=== PATIENT | female | born 1965 ===

== ENCOUNTER 2018-05-09 18:49 | Emergency (ER) | payer OTHER ==
[2018-05-09 18:49] VITALS: BMI 27.4
[2018-05-09 19:47] VITALS: TEMP 99.2
--- NOTE | 2018-05-09 20:13 | ED PDOC ---
Upper Extremity Pain/Injury Time Seen by Provider: 05/09/18 20:06 Chief Complaint (Nursing): Upper Extremity Problem/Injury Chief Complaint (Provider): Upper Extremity Problem/Injury History Per: Patient History/Exam Limitations: no limitations Onset/Duration Of Symptoms: Days (x14) Current Symptoms Are (Timing): Still Present Additional Complaint(s): 52 y/o female with a PMHx of diabetes presents to the ED having left sided chest pain noted by her left axilla, onset two weeks. Patient reports pain has been continuous and worsens with movement of the left arm. Patient additionally reports of numbness to the left arm and pain in the back that improves with0 naprosyn. In addition, patient reports of having a mammogram performed a few weeks ago that resulted within normal limits. Denies cough. PMD: Shaik Ramírez Past Medical History Reviewed: Historical Data, Nursing Documentation, Vital Signs Vital Signs: Last Vital Signs Temp 99.2 F 05/09/18 19:42 Pulse 84 05/09/18 19:42 Resp 18 05/09/18 19:42 BP 147/86 05/09/18 19:42 Pulse Ox 100 05/09/18 19:42 - Medical History PMH: Arthritis, Colonic Polyps, Diabetes, Gastritis, Hypercholesterolemia (NO MED), Hyperlipidemia, Hypothyroidism, Kidney Stones (right, 1994) Denies: Chronic Kidney Disease - Surgical History Surgical History: Cholecystectomy, Endoscopy - Family History Family History: States: Unknown Family Hx - Immunization History Hx Tetanus Toxoid Vaccination: No Hx Influenza Vaccination: No Hx Pneumococcal Vaccination: No - Home Medications Home Medications: Ambulatory Orders Medication Instructions Recorded Levothyroxine Sodium [Unithroid] 112 mcg PO DAILY 03/16/16 Metformin HCl 1,000 mg PO BID 03/16/16 Omeprazole 40 mg PO DAILY 05/20/16 SITagliptin [Januvia] 100 mg PO DAILY 04/04/17 Naproxen 375 mg PO Q8 PRN #21 tablet 05/09/18 - Allergies Allergies/Adverse Reactions: Allergies Allergy/AdvReac Type Severity Reaction Status Date / Time No Known Allergies Allergy Verified 05/11/17 07:52 Review of Systems ROS Statement: Except As Marked, All Systems Reviewed And Found Negative Cardiovascular: Positive for: Chest Pain (left sided) Physical Exam - Reviewed Nursing Documentation Reviewed: Yes Vital Signs Reviewed: Yes - Physical Exam Appears: Positive for: No Acute Distress Head Exam: Positive for: ATRAUMATIC Skin: Positive for: Normal Color, Warm Eye Exam: Positive for: Normal appearance Neck: Positive for: Normal, Painless ROM Cardiovascular/Chest: Positive for: Other (Breasts: Tenderness by insertion pectoralis muscle. No mass noted. No lymphadenopathy. No sign of infection. ). Negative for: Bradycardia, Tachycardia Respiratory: Negative for: Accessory Muscle Use, Respiratory Distress Neurologic/Psych: Positive for: Alert, Oriented (x3). Negative for: Motor/ Sensory Deficits - ECG ECG Rhythm: Positive for: Sinus Rhythm (nsr 76bpm; no ectopy no acute changes) O2 Sat by Pulse Oximetry: 100 (RA) - Progress ED Course And Treament: cxr: nad Medical Decision Making Medical Decision Making: Time: 2005 Plan: -- EKG -- CXR (PA&LAT) -- EKG Documentation Scribe Attestation: Documented by Liat Hendrix, acting as a scribe for Jacob Sanders PA-C. Provider Scribe Attestation: All medical record entries made by the Scribe were at my direction and personally dictated by me. I have reviewed the chart and agree that the record accurately reflects my personal performance of the history, physical exam, medical decision making, and the department course for this patient. I have also personally directed, reviewed, and agree with the discharge instructions and disposition. Disposition - Clinical Impression Clinical Impression: Chest wall tenderness - Patient ED Disposition Is Patient to be Admitted: No - Disposition Referrals: [facility] [Outside] Disposition: Routine/Home Disposition Time: 21:29 Condition: STABLE Prescriptions: Naproxen 375 mg PO Q8 PRN #21 tablet PRN Reason: Pain, Moderate (4-7) Instructions: Chest Pain Print Language: [place]
[2018-05-09 21:59] VITALS: BP 139/79; PULSE 72; RESP 15
--- NOTE | 2018-05-10 08:54 | RAD ---
HISTORY: COMPARISON: No prior. TECHNIQUE: Chest PA and lateral FINDINGS: LINES AND TUBES: None. LUNG AND PLEURA: The lungs are hyperinflated and there is peribronchial thickening with chronic changes in both lungs. No focal consolidation. No pleural effusion or pneumothorax. HEART AND MEDIASTINUM: The heart is not enlarged. The hilar and mediastinal contours are within normal limits. SKELETAL STRUCTURES: The bony structures are within normal limits for the patient's age. VISUALIZED UPPER ABDOMEN: Normal. OTHER FINDINGS: None. IMPRESSION: No active pulmonary disease. COPD.
--- NOTE | 2018-05-10 09:09 | CARD ---
APPROVED REPORT Date of service: 05/09/2018 EKG Measurement Heart [id number] <Conclusion> Normal sinus rhythm Normal ECG
[2018-05-11 15:38] VITALS: O2SAT 100
== END 2018-05-09 21:59 | disposition home or self-care (01) ==
LOC: H.ER 18:49
DX: R07.9 Chest pain, unspecified (principal); E11.9 Type 2 diabetes mellitus without complications; E78.00 Pure hypercholesterolemia, unspecified; E03.9 Hypothyroidism, unspecified; J44.9 Chronic obstructive pulmonary disease, unspecified